=== PATIENT | male | born 1955 | race Caucasian/White ===

== ENCOUNTER 2020-05-12 17:55 | Emergency (ER) | payer OTHER ==
[2020-05-12] MEDS ORDERED: SODIUM CHLORIDE 0.9% (FLUSH) 10 ML SYG IV PRN (18:03)
--- NOTE | 2020-05-12 18:04 | ED.PDOC ---
History of Present Illness - General Time Seen by Provider: 05/12/20 18:02 Source: patient - History of Present Illness Initial Comments: 65 yo male with PMH of CAD with 4 coronary stents, PAD, DM2, smoker who presents with cc of chest pain. Patient reports symptoms began this morning around 9 AM while he was at home taking a conference call and drinking some coffee. Reported onset of chest pressure in the center of his chest which radiates down both arms, mild at rest and worsens with activity/exertion, at worst was 8/10 severity currently in the ED at rest reports 0/10 severity. Reports also this morning at he broke out into a cold sweat and developed dyspnea and nausea without emesis. He also reported some pressure behind his eyes and dizziness earlier today and also this evening. His daughter stated he seemed pale like he was about to pass out so she became concerned and brought him to the ED. Patient reports history of CAD and has 4 stents in his heart, last stent was several years ago in [place]. Reports he has peripheral artery disease and is being worked up for possible stent in the left leg. He had a cardiac stress test 3 days ago but is unsure of the results. Additionally reports intermittent dry cough, mild dyspnea, occasional reflux symptoms. Denies leg swelling, fevers, sore throat. No recent sick contacts. He continues to smoke daily but denies any drug or alcohol usage. Optimization Manager is Dr. Torre in [place]. Allergies/Adverse Reactions: Allergies NO KNOWN ALLERGY Allergy (Verified 05/12/20 18:23) Review of Systems - Review of Systems Review of Systems: 05/12/20 18:27 as per HPI All other Systems: Reviewed and Negative Family Medical History - Family History Mother Family History: Unknown Physical Exam - Physical Exam General Appearance: Alert, Comfortable, No apparent distress Eye Exam: bilateral normal Ears, Nose, Throat: hearing grossly normal, normal ENT inspection, normal pharynx Neck: non-tender, full range of motion, supple, normal inspection Respiratory: chest non-tender, lungs clear, normal breath sounds, no respiratory distress, no accessory muscle use Cardiovascular/Chest: normal peripheral pulses, regular rate, rhythm, no edema, no gallop, no JVD, no murmur Peripheral Pulses: radial,right: 2+, radial,left: 2+ Gastrointestinal/Abdominal: non tender, soft, no organomegaly Back Exam: normal inspection, no CVA tenderness, no vertebral tenderness Extremity: normal range of motion, non-tender, normal inspection, no pedal edema, no calf tenderness, normal capillary refill Neurologic: electrocardiograph technician II-XII nml as tested, no motor/sensory deficits, alert, normal mood/affect, oriented x 3 Skin Exam: normal color, warm/dry Progress - Progress Progress: 05/12/20 18:28 Chest pain -Given patient's extensive cardiac history and clinical presentation, I am highly concerned for ACS, unstable angina, etc. Consider also noncardiac causes: PE, pneumonia, respiratory infection, COVID-19, musculoskeletal chest pain, GERD, anxiety, other -Patient stable upon arrival. Blood pressure 100s/60s. He did report earlier his systolic blood pressure was 180s -Obtain cardiac work-up, respiratory panel, place peripheral IV, anticipate transfer for cardiology consultation -ASA 324 mg PO as precautionary measure. -initial EKG with nonspecific changes 05/12/20 20:56 -Patient remains stable, vitals within normal limits. Still reports 0/10 severity chest pain. -Chest x-ray shows no acute processes per my read -Lab work-up reveals serum troponin 0.022 in the ED. Serum BUN 31, creatinine 1.57. Remainder of labs largely unremarkable. -Repeat EKG is largely unchanged from initial -Spoke with Dr. Nava, meat scrubber, at [facility] who agrees with plan to transfer for cardiology consultation. -Dr. Peña, hospitalist, who accepts pt direct to hospital floor. Pt stable to go via ground EMS. Marin Benjamin MD Billing #[id number] 05/12/20 18:03 IV Care:[facility] .ONCE Sodium Chloride 0.9% (Flush) [Saline Flush Syringe] 10 ml IV PRN PRN 05/12/20 18:04 UA [URINALYSIS] Stat 05/12/20 18:15 EKG STAT 05/12/20 19:15 EKG STAT 05/12/20 19:55 RESPIRATORY PANEL 2 Stat 05/12/20 21:00 Heparin Premix [Heparin/D5w 25,000U/500ML] 25,000 units Premix Bag 1 bag IVS PRN 05/13/20 09:00 Pulse Ox Daily Laboratory Results - last 24 hr 05/12/20 05/12/20 05/12/20 18:22 18:22 18:22 WBC 9.6 RBC 4.03 L Hgb 13.2 L Hct 37.3 L MCV 92.6 MCH 32.7 H MCHC 35.3 RDW 13.4 Plt Count 403 H MPV 6.4 L Absolute Neuts (auto) 6.10 Absolute Lymphs (auto) 2.60 Absolute Monos (auto) 0.60 Absolute Eos (auto) 0.10 Absolute Basos (auto) 0.10 Neutrophils % 64.0 Lymphocytes % 27.6 Monocytes % 5.8 Eosinophils % 1.4 Basophils % 1.2 Sodium 133 L Potassium 4.6 Chloride 98 L Carbon Dioxide 26 Anion Gap 13.6 BUN 33 H Creatinine 1.57 H BUN/Creatinine Ratio 21.0 H Random Glucose 210 H Serum Osmolality 279.8 Calcium 8.9 Total Bilirubin 0.7 AST 14 ALT 13 Alkaline Phosphatase 64 Troponin I < 0.02 B-Natriuretic Peptide 86.3 Serum Total Protein 7.2 Albumin 3.9 Globulin 3.3 Albumin/Globulin Ratio 1.2 05/12/20 19:48 WBC RBC Hgb Hct MCV MCH MCHC RDW Plt Count MPV Absolute Neuts (auto) Absolute Lymphs (auto) Absolute Monos (auto) Absolute Eos (auto) Absolute Basos (auto) Neutrophils % Lymphocytes % Monocytes % Eosinophils % Basophils % Sodium Potassium Chloride Carbon Dioxide Anion Gap BUN Creatinine BUN/Creatinine Ratio Random Glucose Serum Osmolality Calcium Total Bilirubin AST ALT Alkaline Phosphatase Troponin I < 0.02 B-Natriuretic Peptide Serum Total Protein Albumin Globulin Albumin/Globulin Ratio - EKG/XRAY/CT EKG: Sinus - Normal sinus rhythm with right bundle branch block, heart rate 75, no ST segment elevations noted, nonspecific T wave inversions noted in inferior and lateral leads, axis normal, intervals normal, no prior EKG for comparison. XRAY: chest - no acute processes per my read Departure - Departure Clinical Impression: Unstable angina Time of Disposition: 20:53 Disposition: Transfer to Hospital Condition: Fair Referrals: Bret Nunez MD [Primary Care Provider] - 1-2 Weeks Transfer to Outside Facility - Transfer Information Decision to Transfer Date: 05/12/20 Decision to Transfer Time: 21:00 Reason for Transfer: required specialist not available - cardiology Accepting Provider:: Dr. Peña Accepting Facility: [facility]
[2020-05-12] MEDS ORDERED: ASPIRIN (CHEWABLE) 81 MG TAB PO ONE (18:22)
--- NOTE | 2020-05-12 18:49 | RAD ---
EXAM: XR Chest, 1 View CLINICAL HISTORY: chest pressure, cold sweats TECHNIQUE: Frontal view of the chest. COMPARISON: No relevant prior studies available. FINDINGS: Lungs: No consolidation. Symmetrical vascular pattern. Pleural space: No pneumothorax or pleural effusion. Heart: Normal cardiac size and configuration. Mediastinum: No abnormality noted. Bones/joints: No osseous destruction or sclerosis noted. IMPRESSION: No abnormality noted. Electronically signed by: Patricia Macias MD 05/12/2020 6:47 PM CDT
[2020-05-12] MEDS ORDERED: SODIUM CHLORIDE 0.9% 1000ML 1,000 ML IVS ONE (18:50)
[2020-05-12] MEDS ORDERED: HEPARIN SODIUM (PORCINE) 5,000 U/ML VIAL IV ONE (20:48)
[2020-05-12] MEDS ORDERED: HEPARIN PREMIX 25,000 UNITS in PREMIX BAG 1 BAG IVS SCH (21:00)
[2020-05-12 21:37] VITALS: TEMP 96.9; O2SAT 100
[2020-05-12 22:26] VITALS: BP 127/57
== END 2020-05-12 22:27 | disposition short-term general hospital (02) ==
LOC: ER 17:55
DX: I20.0 Unstable angina (principal); I45.10 Unspecified right bundle-branch block; R05 Cough; R11.0 Nausea; R42 Dizziness and giddiness; R06.00 Dyspnea, unspecified; I25.10 Atherosclerotic heart disease of native coronary artery without angina pectoris; E11.9 Type 2 diabetes mellitus without complications; F17.200 Nicotine dependence, unspecified, uncomplicated; I73.9 Peripheral vascular disease, unspecified; Z95.5 Presence of coronary angioplasty implant and graft; Z20.828 Contact with and (suspected) exposure to other viral communicable diseases
CPT/HCPCS: 36415; 71045; 80053; 83880; 84484; 85025; 87486; 87581; 87633; 87635; 93005; 94760; J1644; J7030